=== PATIENT | female | born 1960 | race Caucasian/White ===

== ENCOUNTER 2020-02-25 14:00 | Day surgery (SDC) | payer MEDICAID ==
[~2020-02-25] VITALS: Ht 162.6 cm; Wt 80.1 kg
[~2020-02-25 14:00] MED LIST: ALBU18HF2 INH; ASPI-611 PO; BECL7.3A INH; DIPH-423 PO; DOCU250C19 PO; HYDR-3964 PO; IBUP-1984 PO; LISI40TA4 PO; PANT-47 PO
[2020-02-25 14:37] VITALS: BP 129/73
[2020-02-25] MEDS ORDERED: LIDOcaine 1% w/EPI 1:200,000 10 ML, BUPIVAcaine 2.5mg/ml /PF 25 MG SQ ONE ×2 (14:45)
[2020-02-25] MEDS ORDERED: FLUT16SP11 BOTHNARES (15:19)
[2020-02-25] MEDS ORDERED: FLUT100D2 INH (15:19)
[2020-02-25] MEDS ORDERED: MONT10TA26 PO (15:19)
[2020-02-25] MEDS ORDERED: ATOR40TA PO (15:19)
[2020-02-25] MEDS ORDERED: LIDOcaine 1% w/EPI 1:200,000 10 ML, BUPIVAcaine 2.5mg/ml/PF 25 MG 10mL SQ ONE ×2 (15:40)
[2020-02-25] MEDS ORDERED: LIDOcaine 1% W/epiNEPHrine 1:100,000 20ml vial ONE (15:43)
[2020-02-25] MEDS ORDERED: fentaNYL/PF 50MCG/1 ML 2ML syringe ONE (15:43)
[2020-02-25] MEDS ORDERED: midazolam 2 mg/2 ml injection ONE ×2 (15:43→16:11)
[2020-02-25 16:32] VITALS: BP 139/64
[2020-02-25 16:47] VITALS: BP 140/62
[2020-02-25 17:02] VITALS: BP 131/65
== END 2020-02-25 17:25 | disposition home or self-care (01) ==
LOC: SSTAY O 14:00
PROVIDERS: ATTEND Internal Medicine Interventional Cardiology
DX: Z86.73 Personal history of transient ischemic attack (TIA), and cerebral infarction without residual deficits (principal); J44.9 Chronic obstructive pulmonary disease, unspecified; I10 Essential (primary) hypertension; I25.10 Atherosclerotic heart disease of native coronary artery without angina pectoris; F17.210 Nicotine dependence, cigarettes, uncomplicated; E78.5 Hyperlipidemia, unspecified; E66.01 Morbid (severe) obesity due to excess calories; Z68.29 Body mass index [BMI] 29.0-29.9, adult; Z79.899 Other long term (current) drug therapy; Z79.82 Long term (current) use of aspirin; Z88.0 Allergy status to penicillin
CPT/HCPCS: 33285; 93005; 99152; A6258; C1764; J2250; J3010; J3490; 99153; A4620; A5120; A6449

== ENCOUNTER 2020-05-07 11:50 | Emergency (ER) | payer MEDICAID ==
[~2020-05-07] VITALS: Ht 162.6 cm; Wt 82.3 kg
[~2020-05-07 11:50] MED LIST changes: +ATOR40TA PO; -BECL7.3A INH; +FLUT16SP11 BOTHNARES; -IBUP-1984 PO; +MONT10TA26 PO; -PANT-47 PO
[2020-05-07 13:12] LABS: BASOPHILS # (AUTO) 0.1 X10'3 (0-0.2); BASOPHILS % (AUTO) 0.8 % (0-1); EOSINOPHILS # (AUTO) 0.1 X10'3 (0-0.9); EOSINOPHILS % (AUTO) 1.7 % (0-6); HEMATOCRIT 42.9 % (35.0-45.0); HEMOGLOBIN 14.3 g/dl (12.0-16.0); LYMPHOCYTES # (AUTO) 2.9 X10'3 (1.1-4.8); LYMPHOCYTES % (AUTO) 33.1 % (21-51); MEAN CORPUSCULAR HEMOGLOBIN 28.6 PG (27.0-31.0); MEAN CORPUSCULAR HGB CONC 33.3 g/dL (33.0-36.5); MEAN CORPUSCULAR VOLUME 85.8 FL (78-98); MEAN PLATELET VOLUME 8.1 FL (7.4-10.4); MONOCYTES # (AUTO) 0.5 X10'3 (0-0.9); MONOCYTES % (AUTO) 6.1 % (2-12); NEUTROPHILS # (AUTO) 5.1 X10'3 (1.8-7.7); NEUTROPHILS % (AUTO) 58.3 % (42-75); PLATELET COUNT 263 X10'3 (140-440); RED CELL DISTRIBUTION WIDTH 13.9 % (11.5-14.5); WHITE BLOOD COUNT 8.7 X10'3 (4.5-11.0)
[2020-05-07 13:27] LABS: ALANINE AMINOTRANSFERASE 41 U/L (12-78); ALBUMIN 4.1 G/DL (3.4-5.0); ALBUMIN/GLOBULIN RATIO 1.2 (1.1-1.5); ALKALINE PHOSPHATASE 81 IU/L (46-116); ANION GAP 6 (8-16); ASPARTATE AMINO TRANSFERASE 21 U/L (10-37); BILIRUBIN,TOTAL 0.2 MG/DL (0.1-1.0); BLOOD UREA NITROGEN 11 MG/DL (7-18); BUN/CREATININE RATIO 15.7 (6.6-38.0); CALCIUM 9.6 MG/DL (8.5-10.1); CHLORIDE 106 MMOL/L (99-107); GLUCOSE 100 MG/DL (70-104); POTASSIUM 4.1 MMOL/L (3.5-5.1); SODIUM 141 MMOL/L (135-145); TOTAL PROTEIN 7.5 G/DL (6.4-8.2); eGFR 85 ML/MIN
[2020-05-07 14:07] VITALS: BP 145/80
[2020-05-07] MEDS ORDERED: CYCL-1 PO (14:07)
== END 2020-05-07 14:19 | disposition home or self-care (01) ==
LOC: ER 11:51
DX: M54.6 Pain in thoracic spine (principal); R07.89 Other chest pain; Z88.0 Allergy status to penicillin; Z79.899 Other long term (current) drug therapy; Z79.82 Long term (current) use of aspirin
CPT/HCPCS: 36415; 71045; 80053; 83880; 84484; 85025; 93005; 99285

== ENCOUNTER → 2025-05-24 | Outpatient (CLI) | payer MEDICAID, MEDICARE ==
[~2025-05-24] MED LIST changes: +CYCL-1 PO; +FLUT100D2 INH; +LISI40TA20 PO; -LISI40TA4 PO; +MONT-40 PO; -MONT10TA26 PO
--- NOTE | 2025-05-24 14:14 | RADIOLOGY REPORT ---
Indication: LUNG CA SCREENING Technique: CT axial images of the chest are obtained without contrast. Coronal and sagittal reformats were obtained. Radiation Dose Information: CTDI volume is 3 mGy. Dose-length product is 110 mGy*cm Comparison: None FINDINGS: The trachea is patent. No pneumothorax. 4 mm right middle lobe solid nodule. No pulmonary airspace consolidation. No pleural effusion. Coronary artery calcification disease. Heart normal in size. No supraclavicular, axillary lymphadenopathy. Small hiatal hernia. Right humeral head prosthesis. IMPRESSION: Limited evaluation without contrast. 4 mm right middle lobe solid nodule, lung rads 2. Recommend follow-up low-dose CT in 1 year. Coronary artery calcification disease. Other findings as described.
== END | disposition home or self-care (01) ==
LOC: RAD 13:18
PROVIDERS: ATTEND Physician Assistant
DX: Z12.2 Encounter for screening for malignant neoplasm of respiratory organs (principal); R91.1 Solitary pulmonary nodule; I25.10 Atherosclerotic heart disease of native coronary artery without angina pectoris; K44.9 Diaphragmatic hernia without obstruction or gangrene; Z87.891 Personal history of nicotine dependence
CPT/HCPCS: 71271

== ENCOUNTER 2025-07-17 08:42 | Outpatient (CLI) | payer MEDICARE ==
[2025-07-17 09:36] VITALS: PULSE 87; RESP 16; O2SAT 97
--- NOTE | 2025-07-17 11:50 | PROCEDURE NOTE - Respiratory ---
Procedure Note-Respiratory Providers to CC Copies To 1: STEPHANI CLEARY Procedure Name: This is a spirometry study dated July 17, 2025. Spirometry measurements: The forced vital capacity and the FEV1 measurements are normal. The FEV1 ratio however is somewhat diminished. Some of the flow rate measurements are borderline reduced. Bronchodilator was not administered as part of the study. Conclusion: This study shows mild abnormality. There is evidence for obstructive ventilatory defect in the mild category. 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 It is strongly recommended that the patient completely abstain from cigarette smoking. Bronchodilator therapy should continue for this patient. We have no previous studies for comparison. DOMITILA VELASQUEZ MD Jul 17, 2025 11:50
== END 2025-07-17 23:59 | disposition home or self-care (01) ==
LOC: RT 08:42
DX: J44.9 Chronic obstructive pulmonary disease, unspecified (principal)
CPT/HCPCS: 94010; 94760